=== PATIENT | female | born 1980 | race African-American/Black ===

== ENCOUNTER 2018-04-25 21:54 | Emergency (ER) | payer OTHER ==
[~2018-04-25] VITALS: Ht 170.2 cm; Wt 80.0 kg
[2018-04-25 23:29] LABS: URINE BILIRUBIN - DIPSTICK NEGATIVE (NEGATIVE); URINE BLOOD DIPSTICK LARGE (NEGATIVE); URINE COLOR YELLOW; URINE GLUCOSE - DIPSTICK NEGATIVE (NEGATIVE); URINE KETONE NEGATIVE (NEGATIVE); URINE LEUK ESTERASE SMALL (Negative); URINE NITRITE - DIPSTICK NEGATIVE (Negative); URINE PROTEIN - DIPSTICK 100 mg/dL (NEG-TRACE); URINE SPECIFIC GRAVITY >=1.030
[2018-04-25 23:32] LABS: URINE CLARITY CLOUDY
[2018-04-25 23:47] LABS: URINE RBC 25-50 RBC/hpf (0-5)
[2018-04-25 23:48] LABS: URINE BACTERIA FEW hpf; URINE SQUAMOUS EPITHELIAL CELL FEW EPI/hpf (0-FEW); URINE YEAST FEW hpf
[2018-04-26] MEDS ORDERED: KEFLEX500 MG PO (00:10)
[2018-04-26 00:25] VITALS: BP 112/72
== END 2018-04-26 01:09 | disposition home or self-care (01) | DRG 690 ==
LOC: ED 21:54
PROVIDERS: Emergency Medicine
DX: N39.0 Urinary tract infection, site not specified (principal)